=== PATIENT | female | born 1990 | race Caucasian/White ===

== ENCOUNTER 2017-10-27 15:55 | Emergency (ER) | payer OTHER ==
--- NOTE | 2017-10-27 16:18 | RAD ---
RIGHT ANKLE: 10/27/17 Three views. HISTORY: Ankle pain. Mild soft tissue swelling. No evidence of acute fracture. IMPRESSION: No acute fracture. POS: [facility]
[2017-10-27] MEDS ORDERED: Ketorolac Tromethamine 30 MG/ML VIAL ONE (16:20)
== END 2017-10-27 16:43 | disposition home or self-care (01) ==
LOC: ERS 15:55
DX: S93.401A Sprain of unspecified ligament of right ankle, initial encounter (principal); E03.9 Hypothyroidism, unspecified; G43.909 Migraine, unspecified, not intractable, without status migrainosus; F41.9 Anxiety disorder, unspecified; X50.1XXA Overexertion from prolonged static or awkward postures, initial encounter
CPT/HCPCS: 96372; J1885

== ENCOUNTER 2017-12-27 15:14 | Outpatient (CLI) | payer OTHER | END 2017-12-27 15:15 | disposition home or self-care (01) | LOC: BICRAD 15:14 | PROVIDERS: ATTEND Chiropractor | DX: M54.6 Pain in thoracic spine (principal); M54.2 Cervicalgia | CPT/HCPCS: 72040; 72070 ==

== ENCOUNTER 2018-02-26 18:48 | Emergency (ER) | payer OTHER ==
[~2018-02-26 18:48] MED LIST: ISOVUE-370 76%-LOCM 1 ML ONE
[2018-02-26 19:47] LABS: #Basophils 0.1 thou/uL (0.0-0.2); #Eosinphils 0.2 thou/uL (0.0-0.7); #Lymphocytes 2.4 thou/uL (1.20-3.40); #Monocytes 0.6 thou/uL (0.11-0.59); #Neutrophils 8.9 thou/uL (1.40-6.50); %Basophils 0.5 % (0.0-1.0); %Eosinophils 1.8 % (0.0-10.0); %Lymphocytes 19.7 % (21.0-51.0); %Monocytes 4.7 % (0.0-10.0); %Neutrophils 73.3 % (42.0-75.0); Hemoglobin 15.4 g/dL (12.0-16.0); Mean Corpuscular HGB CONC 34.9 g/dL (32.0-36.0); Mean Corpuscular Hemoglobin 30.4 pg (27.0-31.0); Mean Corpuscular Volume 87.3 fL (78.0-98.0); Mean Platelet Volume 7.6 fL (7.4-10.4); Platelet Count 256 thou/uL (130-400); RBC Distribution Width 11.1 % (11.5-14.5); Red Blood Cell (RBC) Count 5.07 mill/uL (4.20-5.40); White Blood Cell (WBC) Count 12.1 thou/uL (4.8-10.8)
[2018-02-26 20:10] LABS: ALT (SGPT) 16 U/L (8-55); AST (SGOT) 13 U/L (5-34); Albumin 4.7 g/dL (3.5-5.0); Alkaline Phosphatase 94 U/L (40-150); Anion Gap 15 mmol/L (10-20); BUN (Urea Nitrogen) 14 mg/dL (7.0-18.7); Bilirubin, Total 0.8 mg/dL (0.2-1.2); Calc. Creatinine Clearance 0 mL/min (70-130); Calcium 10.5 mg/dL (7.8-10.44); Carbon Dioxide 24 mmol/L (22-29); Chloride 103 mmol/L (98-107); Estimated GFR-MDRD 86; Globulin 3.3 g/dL (2.4-3.5); Glucose 88 mg/dL (70-105); Lipase 24 U/L (8-78); Potassium 3.9 mmol/L (3.5-5.1); Sodium 138 mmol/L (136-145)
[2018-02-26 20:15] LABS: Bilirubin Negative (Negative); Blood, Urine Negative (Negative); Clarity CLEAR (Clear); Glucose, Urine (Dipstick) Negative (Negative); Leukocyte Negative (Negative); Nitrite Negative (Negative); Protein, Urine (Dipstick) Negative (Neg-Trace); Specific Gravity, Urine 1.018 (1.002-1.036); Urobilinogen 0.2 mg/dL (0.2-1.0); pH, Urine 5.5 (5.0-9.0)
[2018-02-26 20:17] LABS: Pregnancy Test - Urine (BHCG) Negative (Negative); Pregu Control Background? CLEAR/WHITE (CLR/WHITE); Pregu Control Bar Appear? YES (CONTROL BAR); Specific Gravity 1.018 (1.002-1.036)
--- NOTE | 2018-02-26 21:53 | CT ---
CT ABDOMEN WITH CONTRAST CT PELVIS WITH CONTRAST: DATE: 02/26/18 TIME: 9:13 p.m. HISTORY: 27-year-old female with right upper quadrant abdominal pain radiating to the upper back. COMPARISON: None. TECHNIQUE: IV injection of iodinated contrast media: Isovue. Oral contrast media: Not administered. FINDINGS: Lung bases are clear. No pneumoperitoneum or ascites. IUD in place. No acute colonic diverticulitis. No small bowel dilation. Cholecystectomy clips in the gallbladder fossa. Bilateral kidneys, abdominal aorta, adrenals, pancreas, liver, spleen, and appendix, are normal. Urinary bladder is decompressed. Several mildly enlarged mesenteric lymph nodes in the right lower quadrant medial to the cecum and a scending colon. No portal vein thrombosis. IMPRESSION: 1. Nonspecific mild right mesenteric lymphadenitis. 2. No other acute findings. 3. Status post cholecystectomy. 4. Intrauterine device. ORALIA Ravi POS: [facility]ARD
== END 2018-02-26 22:35 | disposition home or self-care (01) ==
LOC: ERS 18:48
DX: I88.0 Nonspecific mesenteric lymphadenitis (principal); E03.9 Hypothyroidism, unspecified; F41.9 Anxiety disorder, unspecified; G43.909 Migraine, unspecified, not intractable, without status migrainosus; Z79.899 Other long term (current) drug therapy
CPT/HCPCS: 74177; 80053; 81003; 81025; 83690; 85025; J2270